=== PATIENT | female | born 1930 | race Caucasian/White ===

== ENCOUNTER 2017-04-28 17:37 | Inpatient (IN) | payer MEDICARE ==
[~2017-04-28] VITALS: Ht 154.9 cm; Wt 67.7 kg
[2017-04-28] MEDS ORDERED: VITA100L PO (17:47)
[2017-04-28] MEDS ORDERED: LOSA100T36 PO (17:47)
[2017-04-28] MEDS ORDERED: LOPR1TAB6 PO (17:47)
[2017-04-28] MEDS ORDERED: DONETAB5 PO (17:47)
[2017-04-28] MEDS ORDERED: AMOX250C PO (17:47)
[2017-04-28] MEDS ORDERED: PRAV40TA2 PO (17:47)
[2017-04-28] MEDS ORDERED: NAME5TAB13 PO (17:47)
[2017-04-28 18:27] LABS: BASO # 0.1 10^3/uL (0.0-0.2); BASO % 1.3 % (0.0-1.0); EOS # 0.6 10^3/uL (0.0-0.50); IMMATURE GRANULOCYTE % 0.3 % (0-0); LYMPH # 1.9 10^3/uL (1.5-4.5); LYMPH % 25.9 % (24.0-44.0); MEAN CORPUSCULAR HEMOGLOBIN 29.2 pg (27.0-33.0); MEAN CORPUSCULAR HGB CONC 32.9 g/dl (32.0-36.5); MEAN CORPUSCULAR VOLUME 88.8 fl (80.0-96.0); MONO # 0.5 10^3/uL (0.0-0.8); MONO % 7.3 % (0.0-5.0); NEUTROPHILS # 4.1 10^3/uL (1.8-7.7); NEUTROPHILS % 57.2 % (36.0-66.0); PLATELET COUNT, AUTOMATED 251 10^3/uL (150-450); WHITE BLOOD COUNT 7.1 10^3/uL (4.0-10.0)
--- NOTE | 2017-04-28 18:48 | REP ---
Clinical: Trauma/injury. Fall. Technique: Axial noncontrast images from the skull base to the thoracic inlet with coronal and sagittal re-formations. Findings: Advanced multilevel degenerative disc osteophyte complexes are appreciated. There is no evidence for acute fracture or subluxation. Posterior elements and spinous processes are intact. Spinal canal is patent. Surrounding soft tissues are within normal limits. Impression: Advanced multilevel degenerative changes. No acute fracture / compression injury or subluxation. Signed by Cristopher Escalatne MD 04/28/2017 06:39 P
[2017-04-28 18:51] LABS: CALCIUM LEVEL 9.7 MG/DL (8.8-10.2); CREATININE FOR GFR 1.03 MG/DL (0.55-1.02); GLOMERULAR FILTRATION RATE 53.7 (>32)
--- NOTE | 2017-04-28 18:56 | REP ---
Clinical: Trauma/injury. Fall. Comparison: 03/06/2013. Findings: A moderate scalp hematoma and contusion overlies the right frontal bone. A small contrecoup left frontal subdural hemorrhage cannot be excluded. Underlying atrophy and chronic microvascular ischemic changes are appreciated along with extensive calcifications involving the vertebral basilar system and [place]. Moderate opacification of the sinuses with air-fluid levels seen and while these findings are similar to prior examination suggesting acute on chronic sinusitis, occult injury cannot be excluded. Impression: 1. Moderate right scalp hematoma. 2. Small contrecoup left frontal subdural hemorrhage cannot be excluded. Reevaluation in 3 - 6 hours is recommended. 3. Acute on chronic sinusitis and/or occult facial injury requires correlation. 4. Chronic atrophy and microvascular ischemic disease. Signed by Cristopher Escalante MD 04/28/2017 06:47 P
[2017-04-28] MEDS ORDERED: MORPHINE 4 MG/ML 1ML SYRINGE IV PRN (20:15)
[2017-04-28] MEDS ORDERED: ONDANSETRON 4MG/2ML VIAL (J2405) IV ONE (20:15)
[2017-04-28] MEDS ORDERED: AMOX250C3 PO (20:38)
[2017-04-28] MEDS ORDERED: B-1210009 PO (20:38)
[2017-04-28] MEDS ORDERED: VITMTA PO (20:38)
[2017-04-28 20:40] LABS: INR 1.03
--- NOTE | 2017-04-28 20:46 | REP ---
Clinical: Trauma. Fall. Technique: AP and lateral views of the right knee. Findings: Evidence for prior patellar fracture with orthopedic fixation. Underlying osteopenia and advanced tricompartmental osteoarthritic degenerative changes are appreciated. No acute fracture or dislocation. Atherosclerotic changes to the vasculature noted. Impression: No acute fracture or dislocation identified. Signed by Cristopher Escalante MD 04/28/2017 08:38 P
--- NOTE | 2017-04-28 21:45 | ECGEPIP ---
Stationary ECG Study [facility] - ED Test Date: 2017-04-28 Pat Name: NAGI MADISON Department: Room: - Gender: F Flame Burner: [id number] : 1930 Requested By: DARRELL Aranda Order Number: [id number] Reading MD: Sharon Garcia Measurements Intervals [place] Rate: 61 P: 22 NM: 185 QRS: -3 QRSD: 93 T: 74 QT: 452 QTc: 458 Interpretive Statements SINUS RHYTHM NONSPECIFIC T-WAVE ABNORMALITY NO PRIOR FOR COMPARISON Electronically Signed On 04-28-2017 21:45:26 EST by Sharon Garcia
[2017-04-28] MEDS ORDERED: niCARdipine IV 40 MG in APPROPRIATE DILUENT 1 EA IV SCH (22:00)
--- NOTE | 2017-04-28 22:43 | REP ---
Clinical: Trauma. Fall. Follow up for possible subdural hemorrhage. Comparison: 04/28/2017 at 06:22 p.m., 03/06/2013. Findings: A [id number] scalp contusion and hematoma overlies the right frontal bone and has increased from prior examination. A small amount of subdural fluid is suspected along the left frontotemporal hemisphere (images 7 - 10) which may reflect small acute subdural hemorrhage or chronic hygroma, and findings are essentially unchanged when compared to earlier examination same day. No new extra-axial or intracranial pathology/trauma is identified. Underlying chronic atrophy and microvascular ischemic changes along with atherosclerotic disease to the vertebral basilar system and [place] remains stable. The calvarium appears intact and there is no obvious acute fracture. The mastoid air cells are clear. Opacification and fluid levels involving the frontal, ethmoid, and sphenoid sinuses is similar to 2013 and may reflect acute/chronic sinusitis versus occult injury. Impression: 1. Large scalp hematoma and contusion overlies the right frontal bone slightly increased when compared to earlier examination. 2. A small amount of subdural fluid is unchanged and may reflect acute subdural hematoma versus small chronic hygroma. Finding remains essentially stable compared to earlier examination. 3. No new acute extra-axial or intracranial quality or trauma/injury. 4. Age-related atrophy and microvascular ischemic changes again noted. Signed by Cristopher Escalante MD 04/28/2017 10:35 P
[2017-04-28 22:49] LABS: ABG BASE EXCESS 0.8 (-2.0-2.0); ABG HCO3 24.4 MEQ/L (22.0-26.0); ABG PARTIAL PRESSURE CO2 36.4 mmHg (35.0-45.0); ABG PARTIAL PRESSURE O2 84.4 mmHg (75.0-100.0); ABG STANDARD HCO3 25.1 MEQ/L (22.0-26.0); ABG TOTAL CO2 25.6 MEQ/L (23.0-31.0); ABG pH (ARTERIAL) 7.445 UNITS (7.350-7.450)
[2017-04-28 23:08] VITALS: BP 139/93
[2017-04-28 23:27] VITALS: BP 141/69
[2017-04-28 23:30] VITALS: BP 124/63
[2017-04-28] MEDS: MEMANTINE 5MG TABLET (NAMENDA) PO SCH (23:44)
[2017-04-28] MEDS: AMOXICILLIN 250 MG CAP PO SCH (23:44)
[2017-04-28 23:45] VITALS: BP 131/68
[2017-04-29] VITALS (13 sets, daily range): BP systolic 116–165; BP diastolic 56–90
[2017-04-29 05:14] LABS: MEAN CORPUSCULAR HEMOGLOBIN 29.2 pg (27.0-33.0); MEAN CORPUSCULAR HGB CONC 32.9 g/dl (32.0-36.5); MEAN CORPUSCULAR VOLUME 88.8 fl (80.0-96.0); PLATELET COUNT, AUTOMATED 242 10^3/uL (150-450); RED CELL DISTRIBUTION WIDTH 13.8 % (11.5-14.5); WHITE BLOOD COUNT 8.8 10^3/uL (4.0-10.0)
[2017-04-29 05:38] LABS: CALCIUM LEVEL 9.3 MG/DL (8.8-10.2); CREATININE FOR GFR 0.94 MG/DL (0.55-1.02); GLOMERULAR FILTRATION RATE 59.7 (>32); POTASSIUM SERUM 4.1 MEQ/L (3.5-5.1)
--- NOTE | 2017-04-29 05:50 | HPE ---
DATE OF ADMISSION: 04/28/2017 This is an 87-year-old female. The patient comes in with the chief complaint of fall and possible syncope. As per patient, family and emergency department (ED) staff the patient was apparently in her household when she fall at some point. The patient states that she believes the cause of her fall was mechanical. She tripped. She did not feel any symptoms prior to the fall. She was no lightheaded, dizzy or having loss of consciousness; however, as per family after the fall the daughter who was in another part of the room heard the fall, came and viewed that the patient was unconscious for a period of time post fall. Therefore, they brought her into the ED. PREVIOUS MEDICAL HISTORY: 1. The patient is currently on amoxicillin for ear, nose and throat (ENT) sinusitis infection. 2. B12 deficiency. 3. Dementia. 4. Hypertension. 5. Coronary artery disease. 6. On multivitamins for health care maintenance. HOME MEDICATIONS: - amoxicillin - cyanocobalamin - benazepril - Losartan - Namenda - metoprolol - multivitamins - pravastatin ALLERGIES: The patient without any known allergies. REVIEW OF SYSTEMS: The patient's review of systems negative on ten system review other than what was noted in the history of present illness (HPI). FAMILY HISTORY: The patient does not mention any significant family history. Review of charts do not show significant family history. However, the patient is also 87, therefore family history is somewhat limited in its contributory value. SOCIAL HISTORY: The patient is a nonsmoker, nondrinker, does not use drugs. PHYSICAL EXAMINATION: The patient is resting comfortably when I came in. She is able to follow directions. The patient is alert and oriented times 2-3. The patient is with family at the time. She has poor insight into the occurrence that brought her into the hospital. The patient's head is normocephalic but obvious trauma to the right frontal head area. The patient without any other noted bruising on hands or legs. The patient is able to move all four extremities without any apparent lack of strength. No apparent lymphadenopathy. S1, S2. Good inspiratory and expiratory effort. No wheezes, rhonchi or rales. Abdomen is soft, nontender to palpation. The patient with grossly decreased hearing requiring a raised voice to be heard. LABORATORY EXAM: CBC within normal limits. Blood gas also normal. Chemistry shows mildly increased creatinine of 1.03, otherwise normal. Urinalysis is negative for any obvious signs of infection. Coagulation also is within normal limits. IMAGING: Head CT large scalp hematoma, contusion overlies the right frontal bone slightly increased when compared to earlier exam. Small amount of subdural fluid is unchanged and may reflect acute subdural hematoma versus small chronic hygroma. The finding remains essentially stable compared to earlier examination. New acute extra-axial intracranial quality or trauma injury, age related atrophy, microvascular ischemic change. X-ray of the knee shows no acute fracture. CT of the neck, advanced multilevel degenerative disease, no acute fracture, compression injury, subluxation. ASSESSMENT AND PLAN: The patient is an 87-year-old female admitted for fall, head trauma with possible intracranial bleed. Neurosurgery consulted, examined patient does not believe it is a bleed; however, radiology believes that it may represent a bleed. Neurochecks in intensive care unit (ICU), blood pressure control, followup CT is the plan. The patient's hypertension treatment with drip hypertensive treatment, will hold home medications for now. Hyperlipidemia. Continue home medications. Deep venous thrombosis (DVT) prophylaxis. Intermittent pneumatic compression (IPC). The patient should not be anticoagulations given the large hematoma and possible bleed. Gastrointestinal (GI) prophylaxis. Proton pump inhibitor (PPI). I first saw the patient on 04/28/2017. The patient at this time is admitted for observation, possible discharge if followup CT and neurochecks reveal no difference in mental state.
[2017-04-29] MEDS: DONEPEZIL 5 MG TAB PO SCH (09:00)
[2017-04-29] MEDS: MULTIVITAMINS/MINERALS THERAP 1 TAB PO SCH (09:06)
[2017-04-29] MEDS: MEMANTINE 5MG TABLET (NAMENDA) PO SCH ×2 (09:06→21:49)
[2017-04-29] MEDS: LANSOPRAZOLE SUSPENSION 30 MG/10 ML ORAL SYRINGE (FIRST-LANSOPRAZOLE) PO SCH (09:06)
[2017-04-29] MEDS: CYANOCOBALAMIN 500 MCG TAB PO SCH (09:07)
[2017-04-29] MEDS: PRAVASTATIN 20 MG TAB PO SCH (09:07)
[2017-04-29] MEDS: AMOXICILLIN 250 MG CAP PO SCH ×3 (09:09→21:49)
--- NOTE | 2017-04-29 09:51 | IPN ---
DATE OF SERVICE: 04/29/2017 The patient seen and examined at the bedside. The chart has been reviewed. The patient does not complain of any headaches, changes in vision. No chest pain, pressure, tightness, lightheadedness, dizziness. No nausea, vomiting, abdominal pain. The patient denies any upper or lower extremity weakness or paresthesias. No issues per nursing. She has been off of the nicardipine drip since 3:00 a.m. Blood pressure is well maintained, 118 to 140. Vitals: Temperature 97.9, pulse 71, respiratory rate 14, blood pressure 153/76, 91% on room air. Generally, patient has a large scalp hematoma on the right forehead in the frontal area and bruising on both hands and legs. She is awake, alert and oriented to herself and place, but not to date. Answers questions appropriately. Speaks in full sentences. No use of respiratory accessory muscles. Speech is fluent. Patient's pupils are reactive. Extraocular muscles are intact. She is following commands. Tongue is midline. No facial asymmetry. No expressive aphasia. No dysarthria. There is no dysmetria on txmtrr-mi-tggo testing. No pronator drift. Lungs are clear to auscultation. No wheezing, rales or rhonchi. Heart: S1, S2. Sinus rhythm. Abdomen is obese, soft, nontender, nondistended. Extremities: No cyanosis, clubbing or pitting edema. Laboratory Data: White count 8.8, hemoglobin 14.3, hematocrit 43 and platelet count 242. Sodium 139, potassium 4, chloride 105, bicarbonate 28, BUN 14, creatinine 0.94, glucose 113, calcium 9.3, prolactin pending. Imaging Studies: CT of the head 04/28/2017 with large scalp hematoma and contusion over the right frontal bone slightly increased when compared to earlier examination, small amount of subdural fluid is unchanged and may reflect acute subdural hematoma versus small chronic hygroma. Findings essentially stable. No new acute extra-axial, intracranial quality or trauma/injury. Age-related atrophy and microvascular ischemic changes again noted. Acute on chronic sinusitis or occult facial injury requires correlation. Chronic atrophy and microvascular ischemic change. ASSESSMENT AND PLAN: This is an 87-year-old, DO NOT RESUSCITATE/DO NOT INTUBATE patient with history of advancing dementia, hypertension, coronary artery disease (CAD), chronic sinusitis, on amoxicillin who presents to the emergency room status post a fall and loss of consciousness per family for a few seconds at home. She was found to have a scalp hematoma and questionable subdural hematoma, evaluated by neurosurgeon, Dr. Rose, with no plans for neurosurgical intervention and no plans for repeat imaging studies. Per Dr. Rose, patient is stable. May continue with neurochecks for now and continued observation. Good blood pressure control. IMPRESSIONS: 1. Right scalp hematoma. Neurosurgery has been consulted. Per Dr. Rose, there is no subdural hematoma and does not need to be treated. No acute neurosurgical intervention. He recommends continuation of the neuro checks, but no need for repeat imaging studies. The patient is clinically at baseline according to family at the bedside. 2. Hypertension, uncontrolled, status post nicardipine drip. Stable at the moment. 3. Hyperlipidemia. Continue on home medications. 4. Deep vein thrombosis (DVT) prophylaxis. Pneumatic compressions. No anticoagulation due to recent scalp hematoma. 5. Disposition. Patient may be transferred to medical-surgical floor. Physical therapy (PT) evaluation for clearance home. 6. Chronic sinusitis. On chronic amoxicillin.
[2017-04-29 11:13] LABS: PROLACTIN 10.2 NG/ML
[2017-04-29] MEDS ORDERED: SLF 3 ML SYR IV PRN (21:00)
[2017-04-29] MEDS: SLF 3 ML SYR IV SCH ×2 (21:49→23:26)
[2017-04-30 01:16] VITALS: BP 140/80
[2017-04-30 04:28] VITALS: BP 150/92
[2017-04-30 05:48] VITALS: BP 142/82
[2017-04-30 06:10] LABS: ANION GAP 8 MEQ/L (8-16); BLOOD UREA NITROGEN 13 MG/DL (7-18); CALCIUM LEVEL 9.4 MG/DL (8.8-10.2); CARBON DIOXIDE LEVEL 24 MEQ/L (21-32); CHLORIDE LEVEL 106 MEQ/L (98-107); CREATININE FOR GFR 0.83 MG/DL (0.55-1.02); GLOMERULAR FILTRATION RATE > 60.0 (>32); GLUCOSE, FASTING 137 MG/DL (83-110); MEAN CORPUSCULAR HEMOGLOBIN 29.7 pg (27.0-33.0); MEAN CORPUSCULAR HGB CONC 33.5 g/dl (32.0-36.5); MEAN CORPUSCULAR VOLUME 88.5 fl (80.0-96.0); PLATELET COUNT, AUTOMATED 237 10^3/uL (150-450); POTASSIUM SERUM 4.1 MEQ/L (3.5-5.1); RED CELL DISTRIBUTION WIDTH 13.9 % (11.5-14.5); SODIUM LEVEL 138 MEQ/L (136-145); WHITE BLOOD COUNT 8.1 10^3/uL (4.0-10.0)
[2017-04-30 08:00] VITALS: BP 166/85
[2017-04-30] MEDS: LANSOPRAZOLE SUSPENSION 30 MG/10 ML ORAL SYRINGE (FIRST-LANSOPRAZOLE) PO SCH (09:09)
[2017-04-30 09:10] VITALS: BP 166/85
[2017-04-30] MEDS: CYANOCOBALAMIN 500 MCG TAB PO SCH (09:10)
[2017-04-30] MEDS: PRAVASTATIN 20 MG TAB PO SCH (09:10)
[2017-04-30] MEDS: MEMANTINE 5MG TABLET (NAMENDA) PO SCH (09:10)
[2017-04-30] MEDS: DONEPEZIL 5 MG TAB PO SCH (09:10)
[2017-04-30] MEDS: AMOXICILLIN 250 MG CAP PO SCH (09:10)
[2017-04-30] MEDS: MULTIVITAMINS/MINERALS THERAP 1 TAB PO SCH (09:15)
--- NOTE | 2017-04-30 13:21 | DSES ---
DATE OF ADMISSION: 04/28/2017 DATE OF DISCHARGE: 04/30/2017 ATTENDING PHYSICIAN: Shira Bowling MD DICTATING PHYSICIAN: Shira Bowling MD PRIMARY CARE PROVIDER: Dr. Haywood REFERRING PHYSICIAN: None. CONSULTING PHYSICIANS: Dr. Rose. CONDITION ON DISCHARGE: Stable. FINAL DIAGNOSIS: Mechanical fall with scalp hematoma. PROCEDURES: None. HISTORY OF PRESENT ILLNESS: The patient is an 87-year-old female with a past medical history of B12 deficiency, dementia, hypertension, coronary artery disease, recent sinus infection and on amoxicillin, who presented to the emergency room after she had fallen at home. The patient's fall was described as mechanical after she had tripped. Upon arrival to the emergency room, the patient had a CT scan, which revealed a large scalp hematoma, contusions over the frontal bone, small amount of subdural fluid, which is unchanged, which may reflect acute subdural hematoma versus small chronic hydroma. Findings remained unchanged compared to prior CT scan done earlier that day. HOSPITAL COURSE: 1. Mechanical fall. Likely secondary to tripping and resulting in right scalp hematoma. Neurosurgery has been consulted. Dr. Rose also evaluated the patient. Has reported no subdural hematoma and likely imaging is commercial representative of a chronic hydroma and does not require any additional treatment. The patient received neurological checks but had no focal neurologic deficits. Upon discussion with the family, the patient's mental status was at baseline. The patient has received physical therapy (PT) and has been cleared for discharge from their standpoint. 2. Hypertension. The patient's blood pressure has been better controlled. Her outpatient regimen has been restarted. 3. Hyperlipidemia. Continue with home medications. 4. Chronic sinusitis. Continue with amoxicillin. 5. Deep vein thrombosis (DVT) prophylaxis. Continue with sleeve compression devices. No anticoagulation as scalp hematoma was present. DISCHARGE MEDICATIONS: The patient has been discharged to home on the following medications: - amoxicillin 250 mg three times a day - vitamin B12 1000 mcg by mouth daily - donepezil 2.5 mg by mouth daily - losartan 100 mg by mouth daily - memantine 5 mg by mouth twice a day - metoprolol tartrate 50 mg by mouth twice a day - multivitamin one tablet by mouth daily - protonix 40 mg by mouth daily DISCHARGE INSTRUCTIONS: The patient has been advised to followup with primary care physician, Dr. Chastity, as well as neurosurgery, Dr. Rose's office in the next 7 days. She has been advised to remain compliant with treatment plan and medications and return to the emergency room if she experiences any problems. Time spent on discharge: Greater than 35 minutes. MEETA
--- NOTE | 2017-05-01 16:06 | EEG ---
DATE OF EE04/30/2017 REFERRING PHYSICIAN: Dr. Tamara Orellana DIAGNOSIS: Loss of consciousness. EEG NUMBER: [id number]. HISTORY: The patient is a 87-year-old woman who was admitted at [facility] due to head injury, hematoma, fall and episode of loss of consciousness. This EEG was done to rule out epileptic potential. She is currently taking pravastatin, prevacid, Namenda, amoxicillin, etc. TECHNICAL DESCRIPTION: This digital EEG was recorded by 21 scalp, ear and two EKG electrodes and was reviewed in bipolar and referential montages following reformatting in 10-20 international electrode placement system. INTERPRETATION: Patient was noted to be in awake and drowsy states during this EEG. Resting awake background rhythm consisted of 7 Hz alpha activity measuring 15-50 microvolts in amplitude. Stage I and II sleep was reviewed and was symmetric bilaterally. Hyperventilation could not be performed. Photic stimulation remained unremarkable. EKG revealed normal sinus rhythm. No focal, lateralizing or epileptiform abnormalities were seen. CONCLUSION: This EEG in awake, drowsy states, stage I and II sleep is abnormal due to presence of generalized slowing and disorganization of background consistent with nonspecific diffuse cerebral dysfunction such as seen in dementia and encephalopathy due to multiple potential causes. No epileptiform abnormalities were seen. Clinical correlation is recommended.
== END 2017-04-30 12:39 | disposition home or self-care (01) | DRG 305 ==
LOC: M ED 17:37 → M ED INP 21:56 → M ICU 22:59 → M PCU 04-29 19:39
PROVIDERS: ADMIT Internal Medicine; ATTEND Internal Medicine
DX: I10 Essential (primary) hypertension (principal); Z66 Do not resuscitate; E78.5 Hyperlipidemia, unspecified; J32.9 Chronic sinusitis, unspecified; S00.03XA Contusion of scalp, initial encounter; F03.90 Unspecified dementia, unspecified severity, without behavioral disturbance, psychotic disturbance, mood disturbance, and anxiety; Z79.899 Other long term (current) drug therapy; W01.0XXA Fall on same level from slipping, tripping and stumbling without subsequent striking against object, initial encounter; Y92.009 Unspecified place in unspecified non-institutional (private) residence as the place of occurrence of the external cause; Y93.01 Activity, walking, marching and hiking; Y99.9 Unspecified external cause status